=== PATIENT | female | born 1995 | race Caucasian/White ===

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

== ENCOUNTER 2017-02-02 08:01 | Emergency (ER) | payer SELFPAY ==
[~2017-02-02] VITALS: Ht 167.6 cm; Wt 98.6 kg
[2017-02-02 08:07] VITALS: BP 136/87
[2017-02-02] MEDS ORDERED: ONDANSETRON ODT 4 MG ONE (09:35)
[2017-02-02] MEDS ORDERED: HYDROmorphone 2 MG/ML, 1ML ONE (09:36)
[2017-02-02] MEDS ORDERED: KETOROLAC 30 MG/1 ML ONE (09:36)
[2017-02-02] MEDS ORDERED: OMEP20TA62 PO (09:52)
[2017-02-02] MEDS ORDERED: CETI10CA PO (09:52)
[2017-02-02] MEDS ORDERED: MULT-6 PO (09:52)
[2017-02-02 09:59] LABS: HEMATOCRIT 43.6 % (34.6-47.8); HEMOGLOBIN 14.8 g/dL (11.7-16.4); WHITE BLOOD COUNT 10.3 x10^3/uL (4.5-13.2)
[2017-02-02] MEDS ORDERED: HYDROmorphone 1 MG/ML, 1ML IM ONE (10:00)
[2017-02-02] MEDS ORDERED: KETOROLAC 30 MG/1 ML IM ONE (10:00)
[2017-02-02] MEDS ORDERED: ONDANSETRON ODT 4 MG PO ONE (10:00)
[2017-02-02 10:10] LABS: BLOOD UREA NITROGEN 12 mg/dL (7-18)
[2017-02-02 10:15] LABS: ASPARTATE AMINO TRANSFERASE 17 U/L (15-37)
[2017-02-02] MEDS ORDERED: CEFTRIAXONE 1,000 MG IM ONE (12:30)
== END 2017-02-02 14:04 | disposition home or self-care (01) ==
LOC: ED 10:32
DX: N30.01 Acute cystitis with hematuria (principal)
CPT/HCPCS: 36415; 74020; 80053; 81001; 84703; 85025; 87086; 96372; 99285; J1170; J1885; Q0162

== ENCOUNTER 2017-02-06 11:00 | Emergency (ER) | payer SELFPAY ==
[~2017-02-06] VITALS: Ht 167.6 cm; Wt 98.0 kg
[~2017-02-06 11:00] MED LIST changes: +CETI10CA PO; +MULT-6 PO; +OMEP20TA62 PO
[2017-02-06 12:55] LABS: HEMOGLOBIN 14.2 g/dL (11.7-16.4); WHITE BLOOD COUNT 11.1 x10^3/uL (4.5-13.2)
[2017-02-06] MEDS ORDERED: SODIUM CHLORIDE FLUSH 10ML SYR IVF ONE (13:00)
[2017-02-06] MEDS ORDERED: SODIUM CHLORIDE 0.9% 1,000ML IVBOLUS ONE (13:00)
[2017-02-06] MEDS ORDERED: KETOROLAC 30 MG/1 ML IVPush ONE (13:00)
[2017-02-06] MEDS ORDERED: MORPHINE SULFATE 4 MG/ML, 1ML IVPush PRN (13:00)
[2017-02-06] MEDS ORDERED: MORPHINE SULFATE 4 MG/ML, 1ML ONE (13:03)
[2017-02-06] MEDS ORDERED: KETOROLAC 30 MG/1 ML ONE (13:04)
[2017-02-06 13:06] LABS: ASPARTATE AMINO TRANSFERASE 13 U/L (15-37); BLOOD UREA NITROGEN 13 mg/dL (7-18)
[2017-02-06 15:08] VITALS: BP 129/82
== END 2017-02-06 15:11 | disposition home or self-care (01) ==
LOC: ED 14:33
DX: D27.0 Benign neoplasm of right ovary (principal); N39.0 Urinary tract infection, site not specified; N20.1 Calculus of ureter; F32.9 Major depressive disorder, single episode, unspecified; Z88.8 Allergy status to other drugs, medicaments and biological substances
CPT/HCPCS: 36415; 74176; 80053; 81001; 83690; 85025; 87086; 96361; 96374; 96375; 99285; J1885; J7030

== ENCOUNTER 2017-08-14 20:35 | Emergency (ER) | payer OTHER ==
[~2017-08-14] VITALS: Ht 167.6 cm; Wt 82.0 kg
[2017-08-14] MEDS ORDERED: ONDANSETRON ODT 4 MG ONE (21:28)
[2017-08-14] MEDS ORDERED: KETOROLAC 30 MG/1 ML ONE (21:29)
[2017-08-14] MEDS ORDERED: MORPHINE SULFATE 4 MG/ML, 1ML ONE (21:29)
[2017-08-14] MEDS ORDERED: KETOROLAC 30 MG/1 ML IVPush ONE (21:30)
[2017-08-14] MEDS ORDERED: MORPHINE SULFATE 4 MG/ML, 1ML IVPush PRN (21:30)
[2017-08-14] MEDS ORDERED: SODIUM CHLORIDE FLUSH 10ML SYR IVF ONE (21:30)
[2017-08-14] MEDS ORDERED: ONDANSETRON ODT 4 MG PO ONE (21:30)
[2017-08-14 21:36] VITALS: BP 125/76
[2017-08-14 21:37] LABS: CULTURE INDICATED? YES; MICROSCOPIC INDICATED
[2017-08-14 21:38] LABS: BASOPHILS # (AUTO) 0.04 x10^3/uL (0-0.3); BASOPHILS % (AUTO) 1 % (0-1); EOSINOPHILS % (AUTO) 2 % (1-7); LYMPHOCYTES # (AUTO) 2.26 x10^3/uL (1-6.1); LYMPHOCYTES % (AUTO) 23 % (22-44); MD NO; MEAN CORPUSCULAR HEMOGLOBIN 31.9 pg (27.0-34.8); MEAN CORPUSCULAR HGB CONC 33.8 g/dL (32.4-35.8); MEAN CORPUSCULAR VOLUME 94.3 fL (80-100); MEAN PLATELET VOLUME 9.7 fL (7.4-10.4); MONOCYTES # (AUTO) 0.59 x10^3/uL (0-1.4); MONOCYTES % (AUTO) 6 % (2-9); NEUTROPHILS # (AUTO) 6.72 x10^3/uL (1.8-8.0); NEUTROPHILS % (AUTO) 69 % (42-75); PLATELET COUNT 262 x10^3/uL (130-400); RED BLOOD COUNT 4.75 x10^6/uL (3.82-5.3); RED CELL DISTRIBUTION WIDTH 12.9 % (9.6-15.2)
[2017-08-14 21:48] LABS: ALANINE AMINOTRANSFERASE 16 U/L (12-78); ALBUMIN 4.1 g/dL (3.4-5.0); ANION GAP 8 mmol/L (5-15); CALCIUM 9.4 mg/dL (8.5-10.1); CHLORIDE 108 mmol/L (98-107); CREATININE 0.92 mg/dL (0.55-1.02)
[2017-08-14 21:52] LABS: ALKALINE PHOSPHATASE 118 U/L (45-117); BILIRUBIN,TOTAL 0.3 mg/dL (0.2-1.0); TOTAL PROTEIN 8.1 g/dL (6.4-8.2)
== END 2017-08-14 22:20 | disposition home or self-care (01) ==
LOC: ED 21:50
DX: N20.1 Calculus of ureter (principal); R31.9 Hematuria, unspecified
CPT/HCPCS: 36415; 80053; 81001; 83690; 84703; 85025; 87086; 96374; 96375; 99284; J1885; Q0162

== ENCOUNTER → 2017-12-31 | Outpatient (CLI) | payer OTHER | END | disposition home or self-care (01) | LOC: CFH 09:05 | PROVIDERS: ATTEND Physician Assistant Surgical | DX: N13.2 Hydronephrosis with renal and ureteral calculous obstruction (principal); D27.0 Benign neoplasm of right ovary | CPT/HCPCS: 74176 ==

== ENCOUNTER → 2018-02-20 | Outpatient (CLI) | payer OTHER | END | disposition home or self-care (01) | LOC: CFH 14:21 | PROVIDERS: ATTEND Physician Assistant Surgical | DX: N20.1 Calculus of ureter (principal) | CPT/HCPCS: 74018 ==

== ENCOUNTER 2020-05-23 15:49 | Emergency (ER) | payer OTHER ==
[~2020-05-23] VITALS: Ht 167.6 cm; Wt 60.6 kg
[~2020-05-23 15:49] MED LIST changes: -ESCI10TA PO; +ESCI10TA97 PO
[2020-05-23 16:14] LABS: BASOPHILS % (AUTO) 1 % (0-1); EOSINOPHILS % (AUTO) 3 % (1-7); LYMPHOCYTES % (AUTO) 51 % (22-44); MD NO; MEAN CORPUSCULAR HEMOGLOBIN 31.6 pg (27.0-34.8); MEAN CORPUSCULAR HGB CONC 34.6 g/dL (32.4-35.8); MEAN PLATELET VOLUME 9.2 fL (7.4-10.4); MONOCYTES % (AUTO) 11 % (2-9); NEUTROPHILS % (AUTO) 34 % (42-75); PLATELET COUNT 175 x10^3/uL (130-400); RED BLOOD COUNT 4.14 x10^6/uL (3.82-5.3); RED CELL DISTRIBUTION WIDTH 12.9 % (9.6-15.2)
[2020-05-23 16:24] LABS: ALANINE AMINOTRANSFERASE 18 U/L (12-78); ALBUMIN 4.1 g/dL (3.4-5.0); ANION GAP 4 mmol/L (5-15); CALCIUM 8.8 mg/dL (8.5-10.1); CHLORIDE 106 mmol/L (98-107); CREATININE 0.88 mg/dL (0.55-1.02)
[2020-05-23] MEDS ORDERED: MORPHINE SULFATE 4 MG/ML, 1ML ONE (16:25)
[2020-05-23] MEDS ORDERED: ONDANSETRON 2MG/ML, 2ML ONE (16:25)
[2020-05-23 16:29] LABS: ALKALINE PHOSPHATASE 86 U/L (45-117); BILIRUBIN,TOTAL 0.2 mg/dL (0.2-1.0); TOTAL PROTEIN 7.6 g/dL (6.4-8.2)
[2020-05-23] MEDS ORDERED: MORPHINE SULFATE 4 MG/ML, 1ML IVPush PRN (16:30)
[2020-05-23] MEDS ORDERED: ONDANSETRON 2MG/ML, 2ML IVPush ONE (16:30)
[2020-05-23 16:44] LABS: MICROSCOPIC NOT IND
[2020-05-23] MEDS ORDERED: OMNIPAQUE 350 MG/ML, 100ML BOTTLE ONE (16:59)
--- NOTE | 2020-05-23 17:35 | NUR ---
PT BACK FROM IMAGING NO SIGNS OR SYMPTOMS OF ACUTE DSITRESS NOTED RESPIRATIONS EVEN AND UNLABORED. MD AT BEDSIDE TO ASSESS.
[2020-05-23 18:24] VITALS: BP 99/57
== END 2020-05-23 18:26 | disposition home or self-care (01) ==
LOC: ED 18:01
DX: D21.5 Benign neoplasm of connective and other soft tissue of pelvis (principal); R10.30 Lower abdominal pain, unspecified; Z90.49 Acquired absence of other specified parts of digestive tract
CPT/HCPCS: 36415; 74177; 76830; 80053; 81003; 83690; 84703; 85025; 96374; 96375; 99285; J2270; J2405; Q9967